=== PATIENT | female | born 1990 | race Two or more races ===

== ENCOUNTER 2017-05-22 15:33 | Emergency (ER) | payer MEDICAID ==
[~2017-05-22] VITALS: Ht 157.5 cm; Wt 45.4 kg
[2017-05-22 15:33] VITALS: BP 113/71
== END 2017-05-22 16:14 | disposition home or self-care (01) ==
LOC: ER 15:38
DX: J02.9 Acute pharyngitis, unspecified (principal)
CPT/HCPCS: A4606; Z7610

== ENCOUNTER 2021-01-26 06:31 | Emergency (ER) | payer MEDICAID, OTHER ==
[~2021-01-26] VITALS: Ht 160 cm; Wt 49.9 kg
[2021-01-26 06:31] VITALS: BP 134/88
[2021-01-26 08:22] LABS: BILIRUBIN,URINE Negative (NEGATIVE); COLOR,URINE LIGHT YELLOW (YELLOW); LEUKOCYTE ESTERASE ,URINE Moderate (NEGATIVE); NITRITE, URINE Negative (NEGATIVE); PH,URINE 6.5 (5.0-8.0); PROTEIN,URINE Negative (NEGATIVE); UGLUCOSE Negative (NEGATIVE); UROBILINOGEN,URINE 0.2 EU/dL (0.2)
[2021-01-26 08:43] LABS: BACTERIA,URINE Moderate /HPF (None Seen); SQUAMOUS EPITHELIAL CELL,UR Few /HPF (None Seen)
[2021-01-26] MEDS ORDERED: CEPH500C2 PO (08:49)
[2021-01-26] MEDS ORDERED: IBUP-1957 PO (08:49)
--- NOTE | 2021-01-26 09:10 | NUR ---
Patient discharged to home in stable condition. Written and verbal after care instructions given. Patient verbalizes understanding of instruction.
== END 2021-01-26 09:10 | disposition home or self-care (01) ==
LOC: ER 06:44
DX: N39.0 Urinary tract infection, site not specified (principal)
CPT/HCPCS: 81001; 84703-TC; 87086-TC; 87186-TC

== ENCOUNTER → 2021-02-09 | Emergency (ER) | payer OTHER ==
[~2021-02-09] VITALS: Ht 160 cm; Wt 47.6 kg
[~2021-02-09] MED LIST: CEPH500C2 PO; IBUP-1957 PO
--- NOTE | 2021-02-09 17:20 | NUR ---
CALLED IN ED WAITING ROOM. NO RESPONSE.
--- NOTE | 2021-02-09 17:45 | NUR ---
CALLED IN ED WAITING ROOM NO RESPONSE.
--- NOTE | 2021-02-09 19:06 | NUR ---
COVID TEST COLLECTED AND SENT
--- NOTE | 2021-02-09 19:24 | NUR ---
Patient discharged to home in stable condition. Written and verbal after care instructions given. Patient verbalizes understanding of instruction.
[2021-02-09 19:25] VITALS: BP 106/66
== END | disposition home or self-care (01) ==
LOC: ER 16:27
DX: U07.1 COVID-19 (principal)
CPT/HCPCS: 99283; C9803; U0003